=== PATIENT | male | born 1985 | race American Indian/Alaskan Native ===

== ENCOUNTER 2020-04-30 00:13 | Emergency (ER) | payer OTHER ==
[~2020-04-30] VITALS: Ht 180.3 cm; Wt 106.8 kg
[2020-04-30 00:16] VITALS: BP 147/91
[2020-04-30] MEDS ORDERED: AMOX-422 PO (00:34)
[2020-04-30] MEDS ORDERED: ondansetron 4mg rapidly disintigrating tab PO ONE (00:35)
[2020-04-30] MEDS ORDERED: amox tr/potassium clavulanate 875/125mg TAB PO ONE (00:35)
== END 2020-04-30 00:56 | disposition home or self-care (01) ==
LOC: ER 00:14
DX: S01.551A Open bite of lip, initial encounter (principal); Z79.2 Long term (current) use of antibiotics; Z98.890 Other specified postprocedural states; W54.0XXA Bitten by dog, initial encounter; Y93.89 Activity, other specified; Y92.89 Other specified places as the place of occurrence of the external cause; Y99.8 Other external cause status
CPT/HCPCS: 99283

== ENCOUNTER 2021-06-07 09:56 | Day surgery (SDC) | payer MEDICARE, MEDICAID ==
[~2021-06-07] VITALS: Ht 180.3 cm; Wt 113.6 kg
[2021-06-07] MEDS ORDERED: PANT20TA18 PO (10:44)
[2021-06-07] MEDS ORDERED: fentaNYL/PF 50MCG/1 ML 2ML syringe ONE (10:56)
[2021-06-07] MEDS ORDERED: LIDOcaine Viscous 15ml cup ONE (10:56)
[2021-06-07] MEDS ORDERED: MIDAZolam 1 MG/ML 5ML VIAL ONE (10:56)
[2021-06-07 11:21] VITALS: BP 117/75
[2021-06-07 11:31] VITALS: BP 114/52
[2021-06-07 11:32] VITALS: BP 132/66
[2021-06-07 11:41] VITALS: BP 101/58
[2021-06-07 11:51] VITALS: BP 106/65
== END 2021-06-07 12:00 | disposition home or self-care (01) ==
LOC: GI LAB 09:56
PROVIDERS: ATTEND Internal Medicine Gastroenterology
DX: R11.2 Nausea with vomiting, unspecified (principal); R10.9 Unspecified abdominal pain; K22.89 Other specified disease of esophagus; K44.9 Diaphragmatic hernia without obstruction or gangrene; K20.80 Other esophagitis without bleeding; F17.290 Nicotine dependence, other tobacco product, uncomplicated
CPT/HCPCS: 43239; 88305; 88342; G0500; J2250; J3010; J7030; Z7512; 99152; A4620